=== PATIENT | male | born 1975 | race Caucasian/White ===

== ENCOUNTER 2019-01-12 20:09 | Emergency (ER) | payer BC ==
[~2019-01-12] VITALS: Ht 180.3 cm; Wt 84.5 kg
[2019-01-12 20:13] VITALS: BP 148/93
[2019-01-12] MEDS ORDERED: LIDOcaine 1% 30ml preserv. free vial IJ ONE (20:35)
== END 2019-01-12 22:09 | disposition home or self-care (01) ==
LOC: ER 20:09
DX: S61.217A Laceration without foreign body of left little finger without damage to nail, initial encounter (principal); S01.01XA Laceration without foreign body of scalp, initial encounter; E11.9 Type 2 diabetes mellitus without complications; F12.90 Cannabis use, unspecified, uncomplicated; F15.90 Other stimulant use, unspecified, uncomplicated; Z98.890 Other specified postprocedural states; Y04.0XXA Assault by unarmed brawl or fight, initial encounter; Y93.89 Activity, other specified; Y92.89 Other specified places as the place of occurrence of the external cause; Y99.8 Other external cause status
CPT/HCPCS: 12002; 70450; 99284; J2001